=== PATIENT | male | born 1995 | race African-American/Black ===

== ENCOUNTER 2016-08-25 21:27 | Emergency (ER) | payer MEDICAID ==
[~2016-08-25] VITALS: Ht 180.3 cm; Wt 100.0 kg
[2016-08-25 21:55] VITALS: BP 168/98
== END 2016-08-26 00:41 | disposition home or self-care (01) ==
LOC: ER 21:28
DX: K21.9 Gastro-esophageal reflux disease without esophagitis (principal); F12.10 Cannabis abuse, uncomplicated; Z86.11 Personal history of tuberculosis
CPT/HCPCS: 71010; 99283

== ENCOUNTER 2016-10-21 18:54 | Emergency (ER) | payer MEDICAID ==
[~2016-10-21] VITALS: Ht 180.3 cm; Wt 98.0 kg
[2016-10-21 19:10] VITALS: BP 119/73
== END 2016-10-21 22:45 | disposition left against medical advice (07) ==
LOC: ER 18:54
DX: Z53.21 Procedure and treatment not carried out due to patient leaving prior to being seen by health care provider (principal)

== ENCOUNTER 2016-11-27 00:55 | Emergency (ER) | payer MEDICAID ==
[~2016-11-27] VITALS: Ht 177.8 cm; Wt 91.0 kg
[2016-11-27] MEDS ORDERED: IBUPROFEN 600MG TABLET PO ONE (01:45)
[2016-11-27] MEDS ORDERED: FAMOTIDINE 20MG TABLET PO ONE (01:45)
[2016-11-27] MEDS ORDERED: MAGNESIUM/ALUMINUM HYDROXIDE/SIMETHICONE 30ML UDC PO ONE (01:45)
[2016-11-27 02:10] VITALS: BP 130/78
== END 2016-11-27 02:12 | disposition home or self-care (01) ==
LOC: ER 00:55
DX: K21.9 Gastro-esophageal reflux disease without esophagitis (principal); J02.9 Acute pharyngitis, unspecified; M54.2 Cervicalgia; F12.10 Cannabis abuse, uncomplicated; E78.00 Pure hypercholesterolemia, unspecified
CPT/HCPCS: 99284; Z7610

== ENCOUNTER 2017-01-31 20:31 | Emergency (ER) | payer MEDICAID ==
[~2017-01-31] VITALS: Ht 180.3 cm; Wt 91.0 kg
[2017-02-01] MEDS ORDERED: ONDANSETRON HCL 4MG/2ML VIAL IV STA (01:49)
[2017-02-01] MEDS ORDERED: SODIUM CHLORIDE 0.9% 1,000 ML IV ONE (01:49)
[2017-02-01 02:10] LABS: BASOPHILS % 0.6 % (0.0-2.0); EOSINOPHILS % 2.1 % (0.0-5.0); HEMATOCRIT. 42.1 % (42.0-52.0); HEMOGLOBIN. 14.3 g/dL (14.0-18.0); LYMPHOCYTES % 41.6 % (20.0-50.0); MEAN CORPUSCULAR HEMOGLOBIN 28.1 pg (28.0-32.0); MEAN CORPUSCULAR VOLUME 82.8 fL (80.0-94.0); MEAN PLATELET VOLUME 8.3 fl (7.4-10.4); MONOCYTES % 7.6 % (2.0-8.0); NEUTROPHILS % 48.1 % (40.0-76.0); PLATELET 205 x1000/uL (130-400); RED BLOOD CELL COUNT 5.08 mill/uL (4.7-6.1); RED CELL DISTRIBUTION WIDTH 14.2 % (11.6-14.6)
[2017-02-01 02:30] LABS: CARBON DIOXIDE 28 mEq/L (21-32); CHLORIDE 102 mEq/L (98-107); ETHANOL BLOOD < 10 mg/dL; TROPONIN I < 0.02 ng/mL (0.00-0.04)
[2017-02-01 06:37] VITALS: BP 125/69
== END 2017-02-01 06:39 | disposition home or self-care (01) ==
LOC: ER 20:31
DX: L02.214 Cutaneous abscess of groin (principal); E78.00 Pure hypercholesterolemia, unspecified; K21.9 Gastro-esophageal reflux disease without esophagitis; F12.10 Cannabis abuse, uncomplicated
CPT/HCPCS: 36415; 71010; 80053; 83690; 84484; 85025; 99285; G0482; J7030

== ENCOUNTER 2019-05-20 18:07 | Emergency (ER) | payer MEDICAID ==
[~2019-05-20] VITALS: Ht 180.3 cm; Wt 91.0 kg
[2019-05-20 18:29] VITALS: BP 143/79
== END 2019-05-20 21:10 | disposition left against medical advice (07) ==
LOC: ER 18:07
DX: Z53.21 Procedure and treatment not carried out due to patient leaving prior to being seen by health care provider (principal)

== ENCOUNTER 2019-05-21 22:25 | Emergency (ER) | payer MEDICAID ==
[~2019-05-21] VITALS: Ht 180.3 cm; Wt 91.0 kg
[2019-05-22] MEDS ORDERED: SODIUM CHLORIDE 0.9% 1,000 ML IV ONE (00:58)
[2019-05-22] MEDS ORDERED: PANTOPRAZOLE SODIUM 40 MG/VIAL IV STA (00:58)
[2019-05-22] MEDS ORDERED: ONDANSETRON HCL 4MG/2ML INJ IV STA (00:58)
[2019-05-22 01:30] LABS: BASOPHILS % 0.8 % (0.0-2.0); EOSINOPHILS % 0.6 % (0.0-5.0); HEMATOCRIT. 43.8 % (42.0-52.0); HEMOGLOBIN. 14.7 g/dL (14.0-18.0); LYMPHOCYTES % 24.1 % (20.0-50.0); MEAN CORPUSCULAR VOLUME 83.2 fL (80.0-94.0); MEAN PLATELET VOLUME 8.5 fl (7.4-10.4); MONOCYTES % 5.5 % (2.0-8.0); PLATELET 211 x1000/uL (130-400); RED BLOOD CELL COUNT 5.26 mill/uL (4.7-6.1); RED CELL DISTRIBUTION WIDTH 14.3 % (11.6-14.6)
[2019-05-22 01:36] LABS: CHLORIDE 105 mEq/L (98-107)
[2019-05-22 01:45] LABS: INR 1.1; PROTHROMBIN TIME 11.6 sec (9.6-11.0)
[2019-05-22] MEDS ORDERED: KETOROLAC 30MG/ML VIAL IV STA (02:20)
[2019-05-22] MEDS ORDERED: MAGNESIUM/ALUMINUM HYDROXIDE/SIMETHICONE 30ML UDC PO STA (02:20)
[2019-05-22 03:32] VITALS: BP 127/73
== END 2019-05-22 03:34 | disposition home or self-care (01) ==
LOC: ER 22:25
DX: K21.9 Gastro-esophageal reflux disease without esophagitis (principal)
CPT/HCPCS: 36415; 80053; 83690; 85025; 85610; 96361; 96374; 96375; 99283; C9113; J1885; J2405; J7030; Z7610

== ENCOUNTER 2019-10-08 21:49 | Emergency (ER) | payer MEDICAID ==
[~2019-10-08] VITALS: Ht 180.3 cm; Wt 100.0 kg
[2019-10-08 21:56] VITALS: BP 140/92
[2019-10-08] MEDS ORDERED: VISCOUS LIDOCAINE 2% 15 ML UDC PO ONE (22:30)
[2019-10-08] MEDS ORDERED: KETOROLAC 30MG/ML VIAL IM ONE (22:30)
[2019-10-08] MEDS ORDERED: MAGNESIUM/ALUMINUM HYDROXIDE/SIMETHICONE 30ML UDC PO ONE (22:30)
== END 2019-10-08 22:53 | disposition home or self-care (01) ==
LOC: ER 21:49
DX: R07.0 Pain in throat (principal); F12.10 Cannabis abuse, uncomplicated; K21.9 Gastro-esophageal reflux disease without esophagitis
CPT/HCPCS: 96372; 99283; J1885

== ENCOUNTER 2022-09-09 21:22 | Emergency (ER) | payer MEDICAID ==
[~2022-09-09] VITALS: Ht 172.7 cm; Wt 82.0 kg
[2022-09-09 21:25] VITALS: BP 165/106
== END 2022-09-10 02:26 | disposition left against medical advice (07) ==
LOC: ER 21:22
DX: Z53.21 Procedure and treatment not carried out due to patient leaving prior to being seen by health care provider (principal)
CPT/HCPCS: 99281

== ENCOUNTER 2022-11-15 15:58 | Emergency (ER) | payer MEDICAID ==
[~2022-11-15] VITALS: Ht 180.3 cm; Wt 95.0 kg
[2022-11-15 16:03] VITALS: O2SAT 99
[2022-11-15] MEDS ORDERED: BACITRACIN ZINC OINT UDPKT TOP ONE (17:00)
[2022-11-15] MEDS ORDERED: LIDOCAINE HCL/PF 1% 10 MG/ML 5ML VIAL INFIL ONE (17:00)
[2022-11-15 18:43] VITALS: BP 127/86; PULSE 86; RESP 20; TEMP 97.8
== END 2022-11-15 18:45 | disposition home or self-care (01) ==
LOC: ER 15:58
DX: S61.411A Laceration without foreign body of right hand, initial encounter (principal); X58.XXXA Exposure to other specified factors, initial encounter; Y93.89 Activity, other specified; Y92.89 Other specified places as the place of occurrence of the external cause; Y99.8 Other external cause status
CPT/HCPCS: 99283; 73130; 12004; J3490

== ENCOUNTER 2024-09-17 03:10 | Emergency (ER) | payer MEDICAID ==
[~2024-09-17] VITALS: Ht 180.3 cm; Wt 104.5 kg
[2024-09-17 05:00] VITALS: O2SAT 98
[2024-09-17 05:07] VITALS: BP 127/83; PULSE 94; RESP 16; TEMP 36.7; O2SAT 98
[2024-09-17] MEDS ORDERED: IBUP-2028 MT (06:47)
[2024-09-17] MEDS ORDERED: TOPUD PO (06:47)
== END 2024-09-17 07:01 | disposition home or self-care (01) ==
LOC: ER 03:10
DX: S60.221A Contusion of right hand, initial encounter (principal); Z87.891 Personal history of nicotine dependence; X58.XXXA Exposure to other specified factors, initial encounter; Y93.9 Activity, unspecified; Y92.89 Other specified places as the place of occurrence of the external cause; Y99.8 Other external cause status
CPT/HCPCS: 73130; 99283